=== PATIENT | female | born 2005 | race Caucasian/White ===

== ENCOUNTER 2025-01-06 15:32 | Emergency (ER) | payer BC ==
[~2025-01-06] VITALS: Ht 170.2 cm; Wt 53.1 kg
[2025-01-06 15:55] VITALS: TEMP 97.9
[2025-01-06 16:27] LABS: PREGNANCY TEST URINE QUAL NEGATIVE (NEGATIVE)
[2025-01-06 16:29] LABS: PLATELET COUNT (AUTO) 377 K/uL (150-450); RED BLOOD CELL COUNT(AUTO) 4.95 MIL/uL (4.0-5.2); RED CELL DISTRIBUTION WIDTH 13.5 % (11.5-15.0); WHITE BLOOD COUNT (AUTO) 10.6 K/uL (4.3-11.0)
[2025-01-06] MEDS: IV NS 0.9% 1,000 ML BAG IV ONE (16:30)
[2025-01-06] MEDS ORDERED: ONDANSETRON HCL/PF 4 MG/2 ML VIAL ONE (16:33)
[2025-01-06] MEDS ORDERED: TAMSULOSIN 0.4 MG CAP.SR.24H ONE (16:33)
[2025-01-06 16:34] LABS: CALCIUM, SERUM 9.6 mg/dL (8.5-10.1); CREATININE 0.7 mg/dL (0.6-1.3); SODIUM SERUM 136.0 mmol/L (136-145); UREA NITROGEN, BLOOD 10.0 mg/dL (7-18)
[2025-01-06 16:36] LABS: APPEARANCE,URINE CLEAR (CLEAR); BLOOD, URINE TRACE Ery/uL (NEGATIVE); LEUKOCYTE ESTERASE ,URINE NEGATIVE (NEGATIVE); NITRITE, URINE NEGATIVE (NEGATIVE); UGLUCOSE NEGATIVE (NEGATIVE)
[2025-01-06 16:40] LABS: ASPARTATE AMINOTRANSFERASE 11.0 U/L (15-37); TOTAL PROTEIN, SERUM 8.3 g/dL (6.4-8.2)
[2025-01-06] MEDS ORDERED: KETOROLAC TROMETHAMINE 15 MG/ML VIAL ONE (16:40)
[2025-01-06 16:46] LABS: ADD URINE CULTURE NO; HYALINE CASTS, URINE Few /LPF (None Seen); SQUAMOUS EPITHELIAL CELL,UR Few /HPF (None Seen); URINE AMORPHOUS PHOSPHATES Few /HPF (None Seen)
[2025-01-06] MEDS: KETOROLAC TROMETHAMINE 15 MG/ML VIAL IV ONE (16:49)
[2025-01-06] MEDS: TAMSULOSIN 0.4 MG CAP.SR.24H PO ONE (16:50)
[2025-01-06] MEDS: ONDANSETRON HCL/PF 4 MG/2 ML VIAL IVP ONE (16:50)
[2025-01-06] MEDS ORDERED: IBUP-1953 PO (17:17)
[2025-01-06] MEDS ORDERED: HYDR-4275 PO (17:17)
[2025-01-06] MEDS ORDERED: TAMS-12 PO (17:17)
[2025-01-06] MEDS ORDERED: ONDA4TAB5 PO (17:17)
[2025-01-06] MEDS ORDERED: POLY17PO4 PO (17:18)
[2025-01-06 17:40] VITALS: BP 127/68; O2SAT 98
== END 2025-01-06 17:41 | disposition home or self-care (01) ==
LOC: ER 15:42
DX: N20.0 Calculus of kidney (principal)
CPT/HCPCS: 99285; 96374; 76770; 96361; 96375; 85025; 80048; 87086; 83690; 80076; 84703; 81001; 36415; J1885; J2405; J7030